=== PATIENT | female | born 1995 | race Caucasian/White ===

== ENCOUNTER 2018-08-01 01:22 | Observation (INO) ==
[2018-08-01 02:52] LABS: Bilirubin,Urine Negative (Negative); Blood,Urine Large (Negative); Clarity,Urine Turbid (Clear); Color,Urine Yellow (Yellow); Glucose,Urine (UA) Normal (Normal); Ketones,Urine Negative (Negative); Leukocyte Esterase,Urine Small (Negative); Nitrite,Urine Negative (Negative); Protein,Urine >=300 mg/dL (Neg-Trace); Specific Gravity,Urine 1.013 (1.010-1.025); Urobilinogen,Urine Normal (Normal)
[2018-08-01 02:53] LABS: Bacteria,Urine Moderate per hpf (None-Few); Hyaline Casts,Urine None Seen per lpf (None-Few); Squamous Epithelial Cell,Urine Many per lpf (None-Few); WBC,Urine TNTC per hpf (0-3)
[2018-08-01] MEDS: 0.9 % Sodium Chloride 1,000 ML IVC SCH ×6 (02:55→22:18)
[2018-08-01 03:20] LABS: Basophils % 0.3 %; Eosinophils % 0.1 %; Hematocrit 37.4 % (35.3-44.9); Hemoglobin 12.6 g/dL (11.5-15.4); Immature Granulocytes % 0.4 % (0-4); Lymphocytes # 0.9 K/mcL (0.6-4.6); Lymphocytes % 8.5 %; Mean Corpuscular HGB Conc 33.7 g/dL (31.6-35.5); Mean Corpuscular Hemoglobin 32.6 pg (28.0-33.3); Mean Corpuscular Volume 96.6 fL (83.0-100.0); Mean Platelet Volume 9.6 fL (9.4-12.4); Monocytes # 1.4 K/mcL (0.0-1.3); Monocytes % 12.8 %; Neutrophils # 8.4 K/mcL (1.6-8.9); Platelet Count 245 K/mcL (140-400); Red Blood Count 3.87 M/mcL (3.82-4.97); Red Cell Distribution Width 12.7 % (11.5-14.5); Segmented Neutrophils % 77.9 %
[2018-08-01 03:22] LABS: RBC,Urine 15-30 per hpf (0-3)
[2018-08-01] MEDS ORDERED: cefTRIAXone 2,000 MG in Water for inj. (sterile) 20 ML 20 ML IVP ONE (03:35)
[2018-08-01 03:40] LABS: Alanine Aminotransferase 13 Units/L (7-52); Albumin 3.8 g/dL (3.5-5.7); Albumin/Globulin Ratio 1.2 (1.1-2.2); Alkaline Phosphatase 89 Units/L (34-104); Aspartate Amino Transferase 15 Units/L (13-39); BUN/Creatinine Ratio 7 (6-26); Bilirubin,Direct 0.1 mg/dL (0.0-0.2); Bilirubin,Indirect 0.3 mg/dL (0.0-1.2); Bilirubin,Total 0.4 mg/dL (0.3-1.0); Blood Urea Nitrogen 5 mg/dL (6-20); Calcium 8.7 mg/dL (8.6-10.3); Carbon Dioxide 24 mEq/L (23-29); Chloride 99 mEq/L (98-107); Globulin 3.3 g/dL (2.4-3.5); Glucose 122 mg/dL (70-105); Osmolality,Calculated 281 (280-300); Potassium 3.4 mEq/L (3.5-5.1); Sodium 136 mEq/L (136-145); Total Protein 7.1 g/dL (6.4-8.9); eGFR For Non-African Americans > 60 (> 60)
--- NOTE | 2018-08-01 04:15 | Emergency Department Note ---
Disposition Clinical Impression: Pyelonephritis, Urinary tract obstruction by kidney stone Disposition: Admitted As Inpatient Condition: Fair Instructions: Urinary Tract Infection in Women (ED) Reasons to Return/Additional Instructions: Return to the emergency department if your symptoms persist or worsen. Return if you develop any new or concerning symptoms. Return if you develop a fever 100.4 greater that is not improved with Tylenol or ibuprofen. Continue your home medications as prescribed. Please follow-up with your primary care physician. Please call their office first thing tomorrow morning to discuss this ED visit and schedule follow-up in the next 5-7 days or sooner if needed. Prescriptions: Cephalexin [Keflex] 500 mg PO BID #28 capsule Referrals: [facility] [Outside] Forms: ED Satisfaction Letter, Work/School Release Time of Disposition: 04:17 General Adult HPI - General Chief complaint: ED Abdominal Pain Stated complaint: Flank Pain Time Seen by Provider: 08/01/18 02:33 Source: patient Limitations: no limitations Nursing Notes Reviewed: Yes Vital Signs Reviewed: Yes - History of Present Illness HPI Narrative: 22yo female presents from home for evaluation of left flank pain. Onset 3 days ago. Associated with urinary frequency and mild burning with urination. No fevers at home. ROS: Pos: as above Negative: Fever, chills, nausea, vomiting, burning with urination, vaginal discharge, history nephrolithiasis Pain Scale: 10 - Related Data Previous Rx's Medication Instructions Recorded Albuterol Sulfate [Albuterol 2 puff IH Q6HR #1 hfa.aer.ad 07/03/16 Inhaler] Azithromycin [Zithromax] 250 mg PO DAILY #6 tablet 07/03/16 Allergies Allergy/AdvReac Type Severity Reaction Status Date / Time No Known Allergies Allergy Verified 08/01/18 02:06 All systems ED: reviewed and negative except as stated. Review of Systems: As Per HPI Past Medical History - Past Medical History Medical history: Reports: no medical history Psychiatric history: Reports: anxiety - Social History Smoking Status: Current every day smoker Smokeless Tobacco Status: No Alcohol use: Reports: none Drug use: Reports: none Physical Exam Vital Signs Reviewed General: Patient is alert, oriented, and in no acute distress. Head: atraumatic, normocephalic Eye: normal appearance, PERRL, EOMI, no scleral icterus, no conjunctival injection ENT: mucous membranes moist, normal external ear exam Neck: normal inspection, trachea midline, full ROM Chest: normal inspection, symmetric chest rise Respiratory: Good respiratory effort. Bilateral breath sounds are clear without wheezing, crackles, or rhonchi. Cardiovascular: Regular rate and rhythm. No clicks, rubs, gallops, or murmors. Normal heart sounds. Abdomen: Bowel sounds present normoactive x-4 quadrants. Abdomen is soft, nondistended. Mild left CVA tenderness. No guarding or rebound. No organomegaly noted. Musculoskeletal: Spontaneously moving all extremities. Skin: warm, dry, intact. Neuro: Alert and oriented x4. Sensation light touch intact. Psych: Patient's affect is appropriate for situation. - General Limitations: no limitations General appearance: alert, in no apparent distress Course Course Narrative: Patient febrile on intake. Provided Tylenol. She remained febrile. Provide IV Toradol to which she responded well. She is now currently afebrile. Urinalysis concerning for UTI. Given patient's symptoms, this is consistent with pyelonephritis. Renal function is normal. No leukocytosis. Patient in general looks ill. CT abdomen pelvis with IV contrast performed to rule out perinephric abscess or other potential nephropathy. CT revealed a 4 mm left sided obstructing kidney stone causing her pyelonephritis. Patient received IV ceftriaxone. I discussed the above with the patient and her mother bedside. Recommend admission for management of her obstructing stone. Both she and her mother are agreeable to this plan of care. I discussed the patient with on-call urology, Dr. Doll. Discussed her fever, obstructing left-sided stone, pyelonephritis, and lack of leukocytosis. He agrees to see the patient on consult with admission to medicine. Discussed the patient with the admitting hospitalist, Dr. Marina, who agrees to accept the patient for continued evaluation and management. Vital Signs Temperature 102.9 F H 08/01/18 01:59 Pulse Rate 144 08/01/18 01:59 Respiratory Rate 20 08/01/18 01:59 Blood Pressure 144/98 08/01/18 01:59 O2 Sat by Pulse Oximetry 99 08/01/18 01:59 Temperature 98.6 F 08/01/18 05:23 Pulse Rate 120 08/01/18 05:23 Respiratory Rate 18 08/01/18 05:23 Blood Pressure 136/95 08/01/18 05:23 O2 Sat by Pulse Oximetry 100 08/01/18 05:23 Oxygen Delivery Oxygen Delivery Room Air Medical Decision Making - Lab Data Result diagrams: 08/01/18 03:08 08/01/18 03:08 Lab Results 08/01/18 08/01/18 08/01/18 Range/Units 02:14 02:14 03:08 WBC 10.7 (4.3-11.1) K/mcL RBC 3.87 (3.82-4.97) M/mcL Hgb 12.6 (11.5-15.4) g/dL Hct 37.4 (35.3-44.9) % MCV 96.6 (83.0-100.0) fL MCH 32.6 (28.0-33.3) pg MCHC 33.7 (31.6-35.5) g/dL RDW 12.7 (11.5-14.5) % Plt Count 245 (140-400) K/mcL MPV 9.6 (9.4-12.4) fL Immature Gran % 0.4 (0-4) % Seg Neutrophils % 77.9 % Lymphocytes % 8.5 % Monocytes % 12.8 % Eosinophils % 0.1 % Basophils % 0.3 % Neutrophils # 8.4 (1.6-8.9) K/mcL Lymphocytes # 0.9 (0.6-4.6) K/mcL Monocytes # 1.4 H (0.0-1.3) K/mcL Eosinophils # 0.0 (0.0-0.6) K/mcL Basophils # 0.0 (0.0-0.2) K/mcL Sodium (136-145) mEq/L Potassium (3.5-5.1) mEq/L Chloride (98-107) mEq/L Carbon Dioxide (23-29) mEq/L BUN (6-20) mg/dL Creatinine (0.60-1.20) mg/dL Est GFR ( Amer) (> 60) Est GFR (Non-Af Amer) (> 60) BUN/Creatinine Ratio (6-26) Glucose (70-105) mg/dL Calculated Osmolality (280-300) Lactic Acid (0.5-2.2) mmol/L Calcium (8.6-10.3) mg/dL Total Bilirubin (0.3-1.0) mg/dL Direct Bilirubin (0.0-0.2) mg/dL Indirect Bilirubin (0.0-1.2) mg/dL AST (13-39) Units/L ALT (7-52) Units/L Alkaline Phosphatase (34-104) Units/L Serum Total Protein (6.4-8.9) g/dL Albumin (3.5-5.7) g/dL Globulin (2.4-3.5) g/dL Albumin/Globulin Ratio (1.1-2.2) Urine Color Yellow (Yellow) Urine Clarity Turbid A (Clear) Urine pH 6.0 (5.0-8.0) pH Units Ur Specific [place] 1.013 (1.010-1.025) Urine Protein >=300 H (Neg-Trace) mg/dL Urine Glucose (UA) Normal (Normal) mg/dL Urine Ketones Negative (Negative) mg/dL Urine Blood Large H (Negative) Urine Nitrite Negative (Negative) Urine Bilirubin Negative (Negative) Urine Urobilinogen Normal (Normal) mg/dL Ur Leukocyte Esterase Small H (Negative) Urine Microscopic RBC 15-30 H (0-3) per hpf Urine Microscopic WBC TNTC H (0-3) per hpf Ur Squamous Epith Cells Many H (None-Few) per lpf Urine Bacteria Moderate H (None-Few) per hpf Hyaline Casts None Seen (None-Few) per lpf Ur Culture Indicated? NO. A (NO) Urine Test Negative (Negative) 08/01/18 08/01/18 Range/Units 03:08 03:08 WBC (4.3-11.1) K/mcL RBC (3.82-4.97) M/mcL Hgb (11.5-15.4) g/dL Hct (35.3-44.9) % MCV (83.0-100.0) fL MCH (28.0-33.3) pg MCHC (31.6-35.5) g/dL RDW (11.5-14.5) % Plt Count (140-400) K/mcL MPV (9.4-12.4) fL Immature Gran % (0-4) % Seg Neutrophils % % Lymphocytes % % Monocytes % % Eosinophils % % Basophils % % Neutrophils # (1.6-8.9) K/mcL Lymphocytes # (0.6-4.6) K/mcL Monocytes # (0.0-1.3) K/mcL Eosinophils # (0.0-0.6) K/mcL Basophils # (0.0-0.2) K/mcL Sodium 136 (136-145) mEq/L Potassium 3.4 L (3.5-5.1) mEq/L Chloride 99 (98-107) mEq/L Carbon Dioxide 24 (23-29) mEq/L BUN 5 L (6-20) mg/dL Creatinine 0.69 (0.60-1.20) mg/dL Est GFR ( Amer) > 60 (> 60) Est GFR (Non-Af Amer) > 60 (> 60) BUN/Creatinine Ratio 7 (6-26) Glucose 122 H (70-105) mg/dL Calculated Osmolality 281 (280-300) Lactic Acid 1.9 (0.5-2.2) mmol/L Calcium 8.7 (8.6-10.3) mg/dL Total Bilirubin 0.4 (0.3-1.0) mg/dL Direct Bilirubin 0.1 (0.0-0.2) mg/dL Indirect Bilirubin 0.3 (0.0-1.2) mg/dL AST 15 (13-39) Units/L ALT 13 (7-52) Units/L Alkaline Phosphatase 89 (34-104) Units/L Serum Total Protein 7.1 (6.4-8.9) g/dL Albumin 3.8 (3.5-5.7) g/dL Globulin 3.3 (2.4-3.5) g/dL Albumin/Globulin Ratio 1.2 (1.1-2.2) Urine Color (Yellow) Urine Clarity (Clear) Urine pH (5.0-8.0) pH Units Ur Specific [place] (1.010-1.025) Urine Protein (Neg-Trace) mg/dL Urine Glucose (UA) (Normal) mg/dL Urine Ketones (Negative) mg/dL Urine Blood (Negative) Urine Nitrite (Negative) Urine Bilirubin (Negative) Urine Urobilinogen (Normal) mg/dL Ur Leukocyte Esterase (Negative) Urine Microscopic RBC (0-3) per hpf Urine Microscopic WBC (0-3) per hpf Ur Squamous Epith Cells (None-Few) per lpf Urine Bacteria (None-Few) per hpf Hyaline Casts (None-Few) per lpf Ur Culture Indicated? (NO) Urine Test (Negative)
[2018-08-01] MEDS ORDERED: Isovue-370 500 ML INFUS..BTL IV ONE (04:40)
[2018-08-01] MEDS ORDERED: Ketorolac 15 MG/ML VIAL IVP ONE (04:44)
--- NOTE | 2018-08-01 06:06 | Emergency Department Note ---
Disposition Clinical Impression: Pyelonephritis, Urinary tract obstruction by kidney stone Disposition: Admitted As Inpatient Condition: Fair Instructions: Urinary Tract Infection in Women (ED) Reasons to Return/Additional Instructions: Return to the emergency department if your symptoms persist or worsen. Return if you develop any new or concerning symptoms. Return if you develop a fever 100.4 greater that is not improved with Tylenol or ibuprofen. Continue your home medications as prescribed. Please follow-up with your primary care physician. Please call their office first thing tomorrow morning to discuss this ED visit and schedule follow-up in the next 5-7 days or sooner if needed. Referrals: [facility] [Outside] Forms: ED Satisfaction Letter, Work/School Release General Adult HPI - General Chief complaint: ED Abdominal Pain Stated complaint: Flank Pain Time Seen by Provider: 08/01/18 02:33 Source: patient Limitations: no limitations Nursing Notes Reviewed: Yes Vital Signs Reviewed: Yes - History of Present Illness Pain Scale: 10 - Related Data Previous Rx's Medication Instructions Recorded Albuterol Sulfate [Albuterol 2 puff IH Q6HR #1 hfa.aer.ad 07/03/16 Inhaler] Azithromycin [Zithromax] 250 mg PO DAILY #6 tablet 07/03/16 Allergies Allergy/AdvReac Type Severity Reaction Status Date / Time No Known Allergies Allergy Verified 08/01/18 02:06 Past Medical History - Past Medical History Medical history: Reports: no medical history Psychiatric history: Reports: anxiety - Social History Smoking Status: Current every day smoker Smokeless Tobacco Status: No Alcohol use: Reports: none Drug use: Reports: none Physical Exam - General Limitations: no limitations General appearance: alert, in no apparent distress Course Vital Signs Temperature 102.9 F H 08/01/18 01:59 Pulse Rate 144 08/01/18 01:59 Respiratory Rate 20 08/01/18 01:59 Blood Pressure 144/98 08/01/18 01:59 O2 Sat by Pulse Oximetry 99 08/01/18 01:59 Temperature 99.4 F 08/01/18 06:00 Pulse Rate 103 08/01/18 06:00 Respiratory Rate 16 08/01/18 06:00 Blood Pressure 123/80 08/01/18 06:00 O2 Sat by Pulse Oximetry 100 08/01/18 06:00 Oxygen Delivery Oxygen Delivery Room Air Medical Decision Making - Medical Records Medical records reviewed: Yes I reviewed the patient's medical records. - Lab Data Lab results reviewed: Yes I reviewed the patient's lab results. Result diagrams: 08/01/18 03:08 08/01/18 03:08 Lab Results 08/01/18 08/01/18 08/01/18 Range/Units 02:14 02:14 03:08 WBC 10.7 (4.3-11.1) K/mcL RBC 3.87 (3.82-4.97) M/mcL Hgb 12.6 (11.5-15.4) g/dL Hct 37.4 (35.3-44.9) % MCV 96.6 (83.0-100.0) fL MCH 32.6 (28.0-33.3) pg MCHC 33.7 (31.6-35.5) g/dL RDW 12.7 (11.5-14.5) % Plt Count 245 (140-400) K/mcL MPV 9.6 (9.4-12.4) fL Immature Gran % 0.4 (0-4) % Seg Neutrophils % 77.9 % Lymphocytes % 8.5 % Monocytes % 12.8 % Eosinophils % 0.1 % Basophils % 0.3 % Neutrophils # 8.4 (1.6-8.9) K/mcL Lymphocytes # 0.9 (0.6-4.6) K/mcL Monocytes # 1.4 H (0.0-1.3) K/mcL Eosinophils # 0.0 (0.0-0.6) K/mcL Basophils # 0.0 (0.0-0.2) K/mcL Sodium (136-145) mEq/L Potassium (3.5-5.1) mEq/L Chloride (98-107) mEq/L Carbon Dioxide (23-29) mEq/L BUN (6-20) mg/dL Creatinine (0.60-1.20) mg/dL Est GFR ( Amer) (> 60) Est GFR (Non-Af Amer) (> 60) BUN/Creatinine Ratio (6-26) Glucose (70-105) mg/dL Calculated Osmolality (280-300) Lactic Acid (0.5-2.2) mmol/L Calcium (8.6-10.3) mg/dL Total Bilirubin (0.3-1.0) mg/dL Direct Bilirubin (0.0-0.2) mg/dL Indirect Bilirubin (0.0-1.2) mg/dL AST (13-39) Units/L ALT (7-52) Units/L Alkaline Phosphatase (34-104) Units/L Serum Total Protein (6.4-8.9) g/dL Albumin (3.5-5.7) g/dL Globulin (2.4-3.5) g/dL Albumin/Globulin Ratio (1.1-2.2) Urine Color Yellow (Yellow) Urine Clarity Turbid A (Clear) Urine pH 6.0 (5.0-8.0) pH Units Ur Specific [place] 1.013 (1.010-1.025) Urine Protein >=300 H (Neg-Trace) mg/dL Urine Glucose (UA) Normal (Normal) mg/dL Urine Ketones Negative (Negative) mg/dL Urine Blood Large H (Negative) Urine Nitrite Negative (Negative) Urine Bilirubin Negative (Negative) Urine Urobilinogen Normal (Normal) mg/dL Ur Leukocyte Esterase Small H (Negative) Urine Microscopic RBC 15-30 H (0-3) per hpf Urine Microscopic WBC TNTC H (0-3) per hpf Ur Squamous Epith Cells Many H (None-Few) per lpf Urine Bacteria Moderate H (None-Few) per hpf Hyaline Casts None Seen (None-Few) per lpf Ur Culture Indicated? NO. A (NO) Urine Test Negative (Negative) 08/01/18 08/01/18 Range/Units 03:08 03:08 WBC (4.3-11.1) K/mcL RBC (3.82-4.97) M/mcL Hgb (11.5-15.4) g/dL Hct (35.3-44.9) % MCV (83.0-100.0) fL MCH (28.0-33.3) pg MCHC (31.6-35.5) g/dL RDW (11.5-14.5) % Plt Count (140-400) K/mcL MPV (9.4-12.4) fL Immature Gran % (0-4) % Seg Neutrophils % % Lymphocytes % % Monocytes % % Eosinophils % % Basophils % % Neutrophils # (1.6-8.9) K/mcL Lymphocytes # (0.6-4.6) K/mcL Monocytes # (0.0-1.3) K/mcL Eosinophils # (0.0-0.6) K/mcL Basophils # (0.0-0.2) K/mcL Sodium 136 (136-145) mEq/L Potassium 3.4 L (3.5-5.1) mEq/L Chloride 99 (98-107) mEq/L Carbon Dioxide 24 (23-29) mEq/L BUN 5 L (6-20) mg/dL Creatinine 0.69 (0.60-1.20) mg/dL Est GFR ( Amer) > 60 (> 60) Est GFR (Non-Af Amer) > 60 (> 60) BUN/Creatinine Ratio 7 (6-26) Glucose 122 H (70-105) mg/dL Calculated Osmolality 281 (280-300) Lactic Acid 1.9 (0.5-2.2) mmol/L Calcium 8.7 (8.6-10.3) mg/dL Total Bilirubin 0.4 (0.3-1.0) mg/dL Direct Bilirubin 0.1 (0.0-0.2) mg/dL Indirect Bilirubin 0.3 (0.0-1.2) mg/dL AST 15 (13-39) Units/L ALT 13 (7-52) Units/L Alkaline Phosphatase 89 (34-104) Units/L Serum Total Protein 7.1 (6.4-8.9) g/dL Albumin 3.8 (3.5-5.7) g/dL Globulin 3.3 (2.4-3.5) g/dL Albumin/Globulin Ratio 1.2 (1.1-2.2) Urine Color (Yellow) Urine Clarity (Clear) Urine pH (5.0-8.0) pH Units Ur Specific [place] (1.010-1.025) Urine Protein (Neg-Trace) mg/dL Urine Glucose (UA) (Normal) mg/dL Urine Ketones (Negative) mg/dL Urine Blood (Negative) Urine Nitrite (Negative) Urine Bilirubin (Negative) Urine Urobilinogen (Normal) mg/dL Ur Leukocyte Esterase (Negative) Urine Microscopic RBC (0-3) per hpf Urine Microscopic WBC (0-3) per hpf Ur Squamous Epith Cells (None-Few) per lpf Urine Bacteria (None-Few) per hpf Hyaline Casts (None-Few) per lpf Ur Culture Indicated? (NO) Urine Test (Negative) - Radiology Data Radiology results reviewed: Yes I reviewed the patient's radiology results. Abdomen/Pelvis CT 08/01/18 04:40 IMPRESSION: 4 mm obstructing stone in the distal left ureter with findings of acute obstructive uropathy including left hydronephrosis/hydroureter and extensive left perinephric fat stranding. No acute bowel abnormality. Normal appendix. Diffuse hepatic steatosis. D/ / Charles Wheatley MD / Charles Wheatley MD Interpreting Provider: Charles Wheatley MD Attestation Statement - Attestation Attestation: I, Atul Suarez MD, personally evaluated this patient and discussed their management with the resident physician. I reviewed the resident's note and agree with the documented findings, medical decision making, and plan of care. 22-year-old female presents to the emergency department with a complaint of left flank pain for 3 days prior to arrival. Today she developed increased pain and fever. There is been mild nausea but no vomiting. No diarrhea. She has had some increase in her frequency and dysuria. No gross hematuria. No history kidney stones. On examination patient is a well-developed well-nourished well-appearing female in no acute distress. She is alert and oriented 3. There is no cyanosis or diaphoresis. Breath sounds are clear and equal bilaterally. Heart regular with a mild tachycardia. Abdomen soft with mid left lateral tenderness on direct palpation and moderate left CVA tenderness. Normal bowel sounds. No guarding or rebound tenderness. No tympany or distention. No organomegaly or masses. No suprapubic tenderness. Labs reviewed. She does have a UTI. CT the abdomen and pelvis was obtained and shows a 4 mm obstructing stone in the distal left ureter with left perinephric stranding. The urologist button puncher, Dr. Doll, was consulted and recommended admission by the hospitalist and will consult on the patient. The hospitalist, Dr. Bravo, was consulted and accepted admission of the patient.
[2018-08-01] MEDS ORDERED: Nicotine 14 MG PATCH.TD24 TD STA (06:18)
--- NOTE | 2018-08-01 08:56 | Internal Med History&Physical ---
Date of Encounter: 08/01/18 Time of Encounter: 09:00 Internal Medicine - H&P: [facility] History of present illness: Ms. Lovelace is a 22 year old female who presented with acute severe left flank pain. She was further evaluated by the ER staff, and her imaging studies revealed 5 mm obstructing stone left distal ureter Complicated hydronephrosis. Her laboratory data was suggestive of pyelonephritis/UTI. patient was started on empiric antibiotic with ceftriaxone, and urology was consulted further evaluation and management. Past Med Surg Social Fam HX - Past Medical History Medical history: no medical history Psychiatric history: anxiety - Social History Smoking Status: Current every day smoker Smokeless Tobacco Status: No Alcohol use: none Drug use: none Internal Medicine - H&P: Meds RX: Buprenorphine HCl/Naloxone HCl [Suboxone 8 mg-2 mg Sl Film] 2 each SL DAILY 08/01/18 [History] RX: cloNIDine HCl [CloNIDine HCl] 0.1 mg PO 2-3XD 08/01/18 [History] RX: Acetaminophen [Tylenol] 650 mg PO Q6HR PRN tablet 08/02/18 [Rx] RX: Patient Taking Own Medication 1 each SL BID each 08/02/18 [Rx] RX: Potassium Chloride [K-Tab ER] 20 meq PO BID #6 tablet.er 08/02/18 [Rx] levoFLOXacin [Levaquin] 500 mg PO DAILY #7 tablet 08/02/18 [Rx] Allergy/AdvReac Type Severity Reaction Status Date / Time No Known Allergies Allergy Verified 08/01/18 02:06 All Systems PM: A 10-system review of systems was performed and is negative for pertinent findings except as documented above in the HPI. - Constitutional Constitutional: no chills, no fever(s), no night sweats - Cardiovascular Cardiovascular ROS IM: no chest pain, no diaphoresis, no dyspnea, no lightheadedness, no palpitations, no syncope - Respiratory Respiratory: no cough, no dyspnea, no wheezing, no excessive phlegm production - Gastrointestinal Gastrointestinal: nausea, no abdominal pain, no diarrhea, no hematemesis, no hematochezia, no melena, no vomiting - Genitourinary Genitourinary: dysuria, flank pain, no change in urinary stream - Neurological Neurological ROS: no confusion, no convulsions, no focal weakness, no numbness, no tingling, no tremor(s) - Constitutional Vitals: Temp Pulse Resp BP Pulse Ox 98.8 F 107 18 146/91 97 08/01/18 06:56 08/01/18 06:56 08/01/18 06:56 08/01/18 06:56 08/01/18 06:56 General appearance: Present: A&O X 3 Exam: as below - Head Head exam: Present: atraumatic, normocephalic - Neck Neck exam general surgery: Present: supple, trachea midline. Absent: l ymphadenopathy - Respiratory Respiratory exam: Present: CTAB. Absent: accessory muscle use, rales, rhonchi, wheezes - Cardiovascular Cardiovascular exam: Present: RRR, +S1, +S2. Absent: diastolic murmur, gallop, rubs, systolic murmur - GI/Abdominal GI/Abdominal exam: Present: normal bowel sounds, soft, no peritoneal signs. Absent: distended, tenderness - Extremities Exam Extremities exam: Present: warm, radial pulses palpable and symmetrical. Absent: calf tenderness, cyanotic, pedal edema Internal Med - H&P Results - Labs CBC & Chem 7: 08/02/18 09:08 08/02/18 09:08 Labs: Short CBC 08/01/18 Range/Units 03:08 WBC 10.7 (4.3-11.1) K/mcL Hgb 12.6 (11.5-15.4) g/dL Hct 37.4 (35.3-44.9) % Plt Count 245 (140-400) K/mcL Neutrophils # 8.4 (1.6-8.9) K/mcL BMP 08/01/18 03:08 Sodium 136 Potassium 3.4 L Chloride 99 Carbon Dioxide 24 BUN 5 L Creatinine 0.69 Glucose 122 H Calcium 8.7 Liver Function 08/01/18 Range/Units 03:08 Total Bilirubin 0.4 (0.3-1.0) mg/dL Direct Bilirubin 0.1 (0.0-0.2) mg/dL AST 15 (13-39) Units/L ALT 13 (7-52) Units/L Alkaline Phosphatase 89 (34-104) Units/L Albumin 3.8 (3.5-5.7) g/dL Urine 08/01/18 Range/Units 02:14 Urine Color Yellow (Yellow) Urine Clarity Turbid A (Clear) Urine pH 6.0 (5.0-8.0) pH Units Ur Specific [place] 1.013 (1.010-1.025) Urine Protein >=300 H (Neg-Trace) mg/dL Urine Glucose (UA) Normal (Normal) mg/dL - Impressions ITS Impressions Abdomen/Pelvis CT 08/01/18 04:40 IMPRESSION: 4 mm obstructing stone in the distal left ureter with findings of acute obstructive uropathy including left hydronephrosis/hydroureter and extensive left perinephric fat stranding. No acute bowel abnormality. Normal appendix. Diffuse hepatic steatosis. D/ / 08/01/2018 07:26:37 Charles Wheatley MD / dany Interpreting Provider: Charles Wheatley MD - Assessment and plan (1) Urinary tract obstruction by kidney stone Status: Acute Assessment and plan: The patient has obstructing 5 mm distal left ureteral calculus with hydronephrosis and pyelonephritis/UTI, For Urgent urinary diversion by placement of left double-J stent in OR today. (2) Pyelonephritis Status: Acute Assessment and plan: The patient was started on ceftriaxone in the ER, we will continue ceftriaxone daily and follow-up on culture for further adjustment of antibiotic regimen (3) Hydronephrosis, left Status: Acute Assessment and plan: The patient has obstructing 5 mm distal left ureteral calculus with hydronephrosis and pyelonephritis/UTI, For Urgent urinary diversion by placement of left double-J stent in OR today. - Time Spent With Patient Total time spent is greater than 50% in coordination of care (as documented) at patient's floor/unit and/or counseling patient:
--- NOTE | 2018-08-01 10:42 | Anesthesia Evaluation PreOp ---
Date of Encounter: 08/01/18 Time of Encounter: 10:41 - Past History Planned Operation: L retro and stent insertion Cardiac History: Denies any Significant Hx Pulmonary History: Denies Any Significant HX [employer] History: Other (anxiety depression) Other Medical History: Renal (L hydronephrosis), Other (+ SIRS) Anesthesia History: No Prior Anesthetic Complications, Past Anesthesia (T&A) : No Test: Negative Alcohol Use: none Drug use: none, prescription drug abuse (clean 4 years) Medications and Allergies Buprenorphine HCl/Naloxone HCl [Suboxone 8 mg-2 mg Sl Film] 2 each SL DAILY 08/01/18 [History] cloNIDine HCl [CloNIDine HCl] 0.1 mg PO 2-3XD 08/01/18 [History] Allergy/AdvReac Type Severity Reaction Status Date / Time No Known Allergies Allergy Verified 08/01/18 02:06 - Meds/Allergy Pre-op Review Medications Reviewed: Yes Allergies Reviewed: Yes Beta Blockers on Current Med List: No Anesthesia Results - Labs 08/01/18 03:08 08/01/18 03:08 Anesthesia Exam Vital Signs/O2 Sat/Glucose, Most Recent Temp Pulse Resp BP Pulse Ox 98.8 F 107 18 146/91 97 08/01/18 06:56 08/01/18 06:56 08/01/18 06:56 08/01/18 06:56 08/01/18 08:30 Weight: 69 kg NPO (# of Hours): > 8 hr - HEENT Pupil (Motor): Pupils equal Mallampati: II Teeth: Normal Oral Opening: Greater than 3 - [employer] LOC: Oriented [employer] Motor: Normal RUE, Normal LUE, Normal RLE, Normal LLE, Normal Face [employer] Sensory: Normal: RUE, LUE, RLE, LLE, Face - Cardiac Rhythm: Regular Murmur: None - Pulmonary Breath Sounds: bilateral Clear Respiratory Effort: Symmetrical Anesthesia Assess/Plan ASA Score: 2 Modified Radha Scale for Level of Consciousness: Cooperative, oriented, and tranquil Anesthetic Plan: General Monitoring Plan: Standard Monitors Recovery Plan: PACU
[2018-08-01] MEDS ORDERED: Famotidine 20 MG/2 ML VIAL ONE (10:55)
[2018-08-01] MEDS ORDERED: Ondansetron 4 MG/2 ML VIAL ONE ×2 (10:55→10:59)
[2018-08-01] MEDS ORDERED: Acetaminophen IV 1,000 MG/100 ML INFUS..BTL ONE (10:55)
[2018-08-01] MEDS ORDERED: *HR* Propofol 200 MG/20 ML VIAL IVP ONE ×2 (10:57→11:17)
[2018-08-01] MEDS ORDERED: *HR* FentaNYL (PF) 100 MCG/2 ML VIAL ONE ×2 (10:57→11:28)
--- NOTE | 2018-08-01 10:57 | Urology - Consult Note ---
Date of Encounter: 08/01/18 Time of Encounter: 10:55 - Assessment and Plan (1) Ureteral calculus, left Current Visit: Yes Status: Acute (2) Pyelonephritis Current Visit: Yes Status: Acute Assessment and plan: Pyelonephritis with signs and symptoms of emerging sepsis and setting obstructing 5 mm distal left ureteral calculus with hydronephrosis. Discussed findings with patient and need for urgent intervention via urinary diversion. Plan: Urgent urinary diversion by placement of left double-J stent in OR today. Patient will follow-up in my office in 1-2 weeks time for discussion regarding definitive management of stone was pyelonephritis/UTI as resolved. Home on oral antibiotics. (3) Hydronephrosis, left Current Visit: Yes Status: Acute Assessment and plan: Secondary 5 mm distal left ureteral calculus., Complicated by active UTI and signs of sepsis. Plan: Urgent urinary diversion by stenting (4) Acute left flank pain Current Visit: Yes Status: Acute Assessment and plan: Secondary to hydronephrosis, pyelonephritis and ureteral calculus. Plan: Urgent urinary diversion by stenting as above. Stage address of stone once infection cleared.. Urology CN:HPI Consult date: 08/01/18 Reason for consult Urology: Hydronephrosis Requesting physician: Crispin Phan History of present illness: Very pleasant 22-year-old lady witha past urologic history. Patient had onset of some flank pain over the last few days. She the pain on the left became so severe that she presented to the emergency department. She cannot have an active UTI some tachycardia and a 5 mm obstructing stone left distal ureter. She is admitted for antibiotics setting of emerging sepsis. She has had fevers up to 102. She appears ill on examination today. Discussed findings with patient and requisition for urinary diversion. Patient denies exacerbating or remitting factors. Current pain is described as significant. Pain located on the left abdomen. Past Med Surg Social Fam HX - Past Medical History Medical history: no medical history Psychiatric history: anxiety - Social History Smoking Status: Current every day smoker Smokeless Tobacco Status: No Alcohol use: none Drug use: none, prescription drug abuse (clean 4 years) Medications and Allergies Buprenorphine HCl/Naloxone HCl [Suboxone 8 mg-2 mg Sl Film] 2 each SL DAILY 08/01/18 [History] cloNIDine HCl [CloNIDine HCl] 0.1 mg PO 2-3XD 08/01/18 [History] Allergy/AdvReac Type Severity Reaction Status Date / Time No Known Allergies Allergy Verified 08/01/18 02:06 Review of Systems - Constitutional fever(s), malaise - EENT Nose, mouth and throat: no dry mouth, no sore throat - Cardiovascular no chest pain - Respiratory cough, dyspnea - Gastrointestinal abdominal pain, nausea, vomiting - Genitourinary Genitourinary: flank pain, no dysuria - Musculoskeletal back pain - Integumentary no lesions, no rash - Neurological no confusion, no sensory deficit - Psychiatric no anxiety, no confusion - Hematologic/Lymphatic no easy bleeding, no easy bruising - Allergic/Immunologic no throat swelling, no wheezing Exam Initial Vital Signs Temp Pulse Resp BP Pulse Ox 102.9 F H 144 20 144/98 99 08/01/18 01:59 08/01/18 01:59 08/01/18 01:59 08/01/18 01:59 08/01/18 01:59 - General physical appearance Present: well developed, well nourished, moderate distress, severe pain - Eyes Present: normal ocular movement - ENT Present: normal mucosa, no hearing loss - Neck Present: trachea midline, no lymphadenopathy - Respiratory Present: normal respiratory effort - Cardiovascular Cardiovascular exam IM: RRR - Abdomen Abdomen: Present: soft, tender - Integumentary Present: no rash, no abnormal pigmentation - Neurologic Present: normal coordination - Musculoskeletal Present: normal gait Urology Results - Labs 08/01/18 03:08 08/01/18 03:08 Abnormal lab results Monocytes # 1.4 K/mcL (0.0-1.3) H 08/01/18 03:08 Potassium 3.4 mEq/L (3.5-5.1) L 08/01/18 03:08 BUN 5 mg/dL (6-20) L 08/01/18 03:08 Glucose 122 mg/dL (70-105) H 08/01/18 03:08 Urine Clarity Turbid (Clear) A 08/01/18 02:14 Urine Protein >=300 mg/dL (Neg-Trace) H 08/01/18 02:14 Urine Blood Large (Negative) H 08/01/18 02:14 Ur Leukocyte Esterase Small (Negative) H 08/01/18 02:14 Urine Microscopic RBC 15-30 per hpf (0-3) H 08/01/18 02:14 Urine Microscopic WBC TNTC per hpf (0-3) H 08/01/18 02:14 Ur Squamous Epith Cells Many per lpf (None-Few) H 08/01/18 02:14 Urine Bacteria Moderate per hpf (None-Few) H 08/01/18 02:14 Ur Culture Indicated? NO. (NO) A 08/01/18 02:14 Diabetes panel 08/01/18 Range/Units 03:08 Sodium 136 (136-145) mEq/L Potassium 3.4 L (3.5-5.1) mEq/L Chloride 99 (98-107) mEq/L Carbon Dioxide 24 (23-29) mEq/L BUN 5 L (6-20) mg/dL Creatinine 0.69 (0.60-1.20) mg/dL Glucose 122 H (70-105) mg/dL Calcium 8.7 (8.6-10.3) mg/dL AST 15 (13-39) Units/L ALT 13 (7-52) Units/L Alkaline Phosphatase 89 (34-104) Units/L Albumin 3.8 (3.5-5.7) g/dL Calcium panel 08/01/18 Range/Units 03:08 Calcium 8.7 (8.6-10.3) mg/dL Albumin 3.8 (3.5-5.7) g/dL Pituitary panel 08/01/18 Range/Units 03:08 Sodium 136 (136-145) mEq/L Potassium 3.4 L (3.5-5.1) mEq/L Chloride 99 (98-107) mEq/L Carbon Dioxide 24 (23-29) mEq/L BUN 5 L (6-20) mg/dL Creatinine 0.69 (0.60-1.20) mg/dL Glucose 122 H (70-105) mg/dL Calcium 8.7 (8.6-10.3) mg/dL Adrenal panel 08/01/18 Range/Units 03:08 Sodium 136 (136-145) mEq/L Potassium 3.4 L (3.5-5.1) mEq/L Chloride 99 (98-107) mEq/L Carbon Dioxide 24 (23-29) mEq/L BUN 5 L (6-20) mg/dL Creatinine 0.69 (0.60-1.20) mg/dL Glucose 122 H (70-105) mg/dL Calcium 8.7 (8.6-10.3) mg/dL Total Bilirubin 0.4 (0.3-1.0) mg/dL AST 15 (13-39) Units/L ALT 13 (7-52) Units/L Alkaline Phosphatase 89 (34-104) Units/L Albumin 3.8 (3.5-5.7) g/dL All other labs normal. - Imaging CT scan - abdomen: image reviewed CT scan - pelvis: image reviewed (CT scan images of abdomen and pelvis are reviewed and interpreted independently) Consult Discharge Plan - Plan Referrals: NONE,PCP [Primary Care Provider] -
[2018-08-01] MEDS ORDERED: Lidocaine -MPF 4% 5 ML AMPUL ONE (10:59)
[2018-08-01] MEDS ORDERED: Lidocaine -MPF 2% 2 ML VIAL ONE (10:59)
[2018-08-01] MEDS ORDERED: Dexamethasone 4 MG/ML VIAL ONE (10:59)
[2018-08-01] MEDS ORDERED: Isovue-300 30 ML VIAL ONE (11:00)
[2018-08-01] MEDS ORDERED: *HR* Rocuronium Bromide 50 MG/5 ML VIAL ONE (11:02)
[2018-08-01] MEDS ORDERED: *HR* FentaNYL (PF) 100 MCG/2 ML VIAL IVP PRN (11:03)
[2018-08-01] MEDS ORDERED: *HR* Promethazine 25 MG/ML VIAL IVP PRN ×2 (11:03→14:02)
[2018-08-01] MEDS ORDERED: Propofol 500 MG/50 ML INFUS..BTL ONE (11:17)
[2018-08-01] MEDS ORDERED: Ondansetron 4 MG/2 ML VIAL IVP PRN ×2 (11:28→14:02)
[2018-08-01] MEDS ORDERED: Acetaminophen 325 MG TABLET PO PRN ×2 (11:31→14:02)
[2018-08-01] MEDS ORDERED: Naloxone 0.4 MG/ML INJ IVP PRN ×2 (11:31→12:35)
[2018-08-01] MEDS ORDERED: *HR* HYDROcodone/Acet 5/325 mg TABLET PO PRN (11:31)
--- NOTE | 2018-08-01 11:38 | Operative Note ---
Date of procedure: 08/01/18 Pre-op diagnosis: Left ureteral calculus, left hydronephrosis, pyelonephritis, urosepsis Post-op diagnosis: same Procedure: Cystoscopy left retrograde ureteral pyelography with intraoperative interpretation of all radial graphic images by surgeon in real time, left double-J stent placement Implants: Left ureteral 6 x 26 double-J stent Complications: None Anesthesia: GETA Surgeon: Maninder Doll Was there an plumber assistant present: No Estimated blood loss (cc): 0 Specimen: None Condition: stable Disposition: PACU Procedure in Detail: The patient was brought to the operating theater placed on table in supine position. The patient identified by name date of and administered a general anesthetic. The patient was placed in dorsal lithotomy prepped and draped in the normal sterile fashion. The cystoscope was inserted into the urethral meatus and advanced toward the bladder under direct visualization. There were no mucosal abnormalities of the urethra or bladder. At this point in open-ended catheter was placed to the left ureteral orifice and with gentle injection of contrast a left retrograde ureteropyelogram was performed. Intraoperative interpretation of these images in real time by surgeon radial mild hydroureteronephrosis without filling defect stricture or other abnormality. At this point a Glidewire was advanced through the open-ended catheter up into the left renal pelvis. All estimates except the Glidewire were then removed. At this point existing Glidewire a 6 x 26 double-J stent was advanced. Once the stent was felt to be in good position the Glidewire removed proximal distal ends stent curled in normal position. This was of the next result. This ended the operative procedure. The patient was awakened operating theater without difficulty and transferred recovery in stable condition. There were no complications.
--- NOTE | 2018-08-01 12:11 | Anesthesia Evaluation Post Op ---
Date of Encounter: 08/01/18 Time of Encounter: 12:10 - Vital Signs Vital Signs: Vital Signs/O2 Sat/Glucose, Most Recent Temp Pulse Resp BP Pulse Ox 100.0 F H 125 20 117/77 96 08/01/18 12:00 08/01/18 12:00 08/01/18 12:00 08/01/18 12:00 08/01/18 12:00 - Lungs Lungs: Clear Ascult./Percussion - Airway Airway: Non-obstructed - Cardiovascular Baseline Rhythm - Mental Status Mental Status: Alert & Oriented, Answers Appropriately - Pain Pain Scale: 1 - Nausea Vomiting Nausea Vomiting: Not Present - Hydration Hydration: Tolerates oral liquids - Discharge PostOp Status: Transfer Patient to floor
[2018-08-01 13:52] LABS: Chol/HDL Ratio 2.8 (0-4.9)
[2018-08-01] MEDS ORDERED: cefTRIAXone 1,000 MG in Water for inj. (sterile) 20 ML 10 ML IVP SCH (15:00)
[2018-08-01] MEDS: SUBOXONE SL SCH ×2 (15:44→21:52)
[2018-08-01] MEDS ORDERED: cloNIDine HCl 0.1 MG TABLET PO SCH ×3 (20:00→21:00)
[2018-08-01] MEDS: *HR* HYDROcodone/Acet 5/325 mg TABLET PO PRN (22:16)
[2018-08-02] MEDS: 0.9 % Sodium Chloride 1,000 ML IVC SCH (04:28)
[2018-08-02] MEDS ORDERED: NALOXONE PO ONE (05:30)
[2018-08-02] MEDS ORDERED: BUPRENORPHINE PO ONE (05:30)
[2018-08-02] MEDS ORDERED: Naloxone 0.4 MG/ML INJ IVP PRN ×2 (08:28→08:36)
[2018-08-02] MEDS: SUBOXONE SL SCH (09:00)
[2018-08-02] MEDS ORDERED: cefTRIAXone 2,000 MG in Water for inj. (sterile) 20 ML 20 ML IVP SCH (09:00)
[2018-08-02] MEDS ORDERED: SUBOXONE SL SCH (09:00)
[2018-08-02] MEDS: *HR* HYDROcodone/Acet 5/325 mg TABLET PO PRN (09:12)
[2018-08-02 09:30] LABS: Bilirubin,Urine Negative (Negative); Blood,Urine Large (Negative); Clarity,Urine Cloudy (Clear); Glucose,Urine (UA) Normal (Normal); Ketones,Urine Trace mg/dL (Negative); Leukocyte Esterase,Urine Moderate (Negative); Nitrite,Urine Negative (Negative); PH,Urine 6.5 pH Units (5.0-8.0); Protein,Urine 100 mg/dL (Neg-Trace); Specific Gravity,Urine 1.016 (1.010-1.025); Urobilinogen,Urine Normal (Normal)
[2018-08-02 09:31] LABS: Hematocrit 34.9 % (35.3-44.9); Mean Corpuscular HGB Conc 34.4 g/dL (31.6-35.5); Mean Corpuscular Hemoglobin 33.5 pg (28.0-33.3); Mean Corpuscular Volume 97.5 fL (83.0-100.0); Mean Platelet Volume 10.3 fL (9.4-12.4); Platelet Count 296 K/mcL (140-400); Red Blood Count 3.58 M/mcL (3.82-4.97)
[2018-08-02 09:31] LABS: Bacteria,Urine None Seen per hpf (None-Few); Hyaline Casts,Urine None Seen per lpf (None-Few); RBC,Urine TNTC per hpf (0-3); Squamous Epithelial Cell,Urine Many per lpf (None-Few); WBC,Urine 50-100 per hpf (0-3)
[2018-08-02 09:36] LABS: Color,Urine Other (Yellow)
[2018-08-02 09:49] LABS: Alanine Aminotransferase 29 Units/L (7-52); Albumin 3.4 g/dL (3.5-5.7); Albumin/Globulin Ratio 1.1 (1.1-2.2); Alkaline Phosphatase 80 Units/L (34-104); Aspartate Amino Transferase 37 Units/L (13-39); BUN/Creatinine Ratio 13 (6-26); Bilirubin,Total 0.4 mg/dL (0.3-1.0); Blood Urea Nitrogen 8 mg/dL (6-20); Calcium 8.4 mg/dL (8.6-10.3); Carbon Dioxide 25 mEq/L (23-29); Chloride 106 mEq/L (98-107); Glucose 149 mg/dL (70-105); Magnesium 1.7 mg/dL (1.6-2.6); Osmolality,Calculated 291 (280-300); Potassium 3.4 mEq/L (3.5-5.1); Sodium 140 mEq/L (136-145); Total Protein 6.4 g/dL (6.4-8.9); eGFR For Non-African Americans > 60 (> 60)
--- NOTE | 2018-08-02 10:28 | Discharge Summary ---
Orders not resulted at time of discharge: Pending orders 08/01/18 02:44 Culture,Urine [RM] Stat 08/01/18 03:08 Culture,Blood [BC] Stat 08/02/18 09:08 Complete Blood Count [HEME] Routine Date of Encounter: 08/02/18 Time of Encounter: : - Discharge Diagnosis (1) Urinary tract obstruction by kidney stone Priority: Primary Status: Acute (2) Hydronephrosis, left Priority: Primary Status: Acute (3) Pyelonephritis Priority: Secondary Status: Acute Hospital course: HOSPITAL COURSE: The patient is a 22-year-old woman. She was admitted to shortly after she had developed severe left flank pain. The pain started abruptly; associated with nausea but not vomiting. The 5 mm obstructing stone was found in left the distal ureter. We presented this patient to urology. She underwent cystoscopy with left retrograde ureteral pyelography. Left double-J stent was inserted. I saw this patient on the next day after the procedure. Left-sided flank pain is nearly gone. Denies nausea and vomiting. She has some reddish discoloration of her urine. She has no difficulty voiding. CT showed findings suggesting pyelonephritis. She got 1 dose of Rocephin. I sent her home with by mouth Levaquin. CONDITION AT DISCHARGE: Feels good. Left-sided flank pain subsided. Denies nausea and vomiting. Skin: Free of rash and discoloration. Respiratory: Normal breath sounds with no crackles and wheezes bilaterally. CV: Heart is regular with no gallop or murmur. GI: Abdomen is flat and soft with no palpable mass or visceromegaly. Neuro exam: There is no focal deficits. Normal speech, swallowing and gait. SEE DISCHARGE ORDERS/MEDICATIONS.. Discharge discussed with: patient, nurse - Time Spent with Patient Total time spent providing and/or coordinating discharge services: Less than 30 minutes - Discharge Medications Prescriptions: levoFLOXacin [Levaquin] 500 mg PO DAILY #7 tablet Potassium Chloride [K-Tab ER] 20 meq PO BID #6 tablet.er Home Medications: Buprenorphine HCl/Naloxone HCl [Suboxone 8 mg-2 mg Sl Film] 2 each SL DAILY 08/01/18 [History] cloNIDine HCl [CloNIDine HCl] 0.1 mg PO 2-3XD 08/01/18 [History] Acetaminophen [Tylenol] 650 mg PO Q6HR PRN tablet 08/02/18 [Rx] Patient Taking Own Medication 1 each SL BID each 08/02/18 [Rx] Potassium Chloride [K-Tab ER] 20 meq PO BID #6 tablet.er 08/02/18 [Rx] levoFLOXacin [Levaquin] 500 mg PO DAILY #7 tablet 08/02/18 [Rx] Allergies/Adverse Reactions: Allergy/AdvReac Type Severity Reaction Status Date / Time No Known Allergies Allergy Verified 08/01/18 02:06 Date of admission: 08/01/18 06:09 Primary care physician: PCP NONE Consults: UROLOGY Discharging clinician: Khurram Rivera Anticipated date of discharge: 08/02/18 - Constitutional Vitals: Temp Pulse Resp BP Pulse Ox 97.9 F 68 16 124/83 98 08/02/18 08:01 08/02/18 03:30 08/02/18 08:01 08/02/18 08:01 08/02/18 08:01 General appearance: Present: A&O X 3, no acute distress, answers questions appropriately Exam: xx - Patient Status Disposition: Home, Self-Care Condition: Good Functional capacity at discharge: independent ambulation Overall status at discharge: patient is progressing back to baseline - Discharge Instructions Instructions: Acute Pyelonephritis (DC) Follow Up With: Maninder Doll [Partnered Physician] - NONE,PCP [Primary Care Provider] - - Diet and Activity Activity: resume usual activities as tolerated Diet: regular diet - VTE Reasons for not Prescribing Prophylaxis: Treatment not Indicated - Low risk for VTE Deep Vein Thrombosis/Pulmonary Embolism Present on Admission: No
[2018-08-02 10:29] LABS: Lymphocytes # 1.6 K/mcL (0.6-4.6)
[2018-08-02 10:30] LABS: Platelet Estimate Normal (Normal)
[2018-08-02 11:20] VITALS: BP 137/93
[2018-08-02] MEDS ORDERED: cloNIDine HCl 0.1 MG TABLET PO SCH (21:00)
== END 2018-08-02 11:47 | disposition home or self-care (01) ==
LOC: 3ANU 01:22 → EMEROOARM 01:22 → SUATTDRO 06:09 → 3ANU 06:44
PROVIDERS: ADMIT Internal Medicine; ATTEND Internal Medicine